=== PATIENT | male | born 1965 | race Caucasian/White ===

== ENCOUNTER 2018-11-06 13:00 | Observation (INO) | payer MEDICAID ==
[2018-11-06] MEDS ORDERED: LISINOPRIL 20 MG TABLET PO ONE (13:28)
--- NOTE | 2018-11-06 13:33 | Emergency Department Record ---
History of Present Illness - General Chief Complaint: Hypertension Stated Complaint: high blood pressure Time Seen by Provider: 11/06/18 13:16 Source: Patient Mode of Arrival: Ambulatory Limitations: No limitations - History of Present Illness Initial Comments: The patient is here due to being told his blood pressure is elevated. He states he has had a long standing hx of HTN and used to take Lisinopril but ran out a couple of months ago. He states it has been running in the 200'2 on the top number and he did go to [facility] last week and was told he needs to see a PCP. According to the doctor at [facility] [place] had an abnormal EKG and was directed to the ER but the patient refused to go. Today he decided to come in to get it checked. He denies any BRICE, CP, SOB, DAYSI, visual changes, or any weakness or numbness to his arms or legs. MD Complaint: Other Onset/Timin -: Year(s) Timing: Unsure History of Same: Yes History of Trauma: Yes Severity: Mild Improves With: Rest Worsens With: Nothing - Nicci Coma Scale Eye Response: (4) Open spontaneously Motor Response: (6) Obeys commands Verbal Response: (5) Oriented Bentley Total: 15 - Related Data Home Medications Medication Instructions Recorded Confirmed Last Taken Lisinopril [Zestril] 20 mg PO DAILY 11/06/18 11/06/18 10/31/18 Allergies Allergy/AdvReac Type Severity Reaction Status Date / Time No Known Drug Allergies Allergy Verified 11/06/18 13:07 Travel Screening - Travel/Exposure Within Last 30 Days Have you traveled within the last 30 days?: No - Travel/Exposure Within Last Year Have you traveled outside the [place] in the last year?: No - Additonal Travel Details Have you been exposed to anyone with a communicable illness?: No - Travel Symptoms Symptom Screening: None Review of Systems Constitutional: Denies: Chills, Fever Eyes: Denies: Eye discharge ENT: Denies: Congestion Respiratory: Denies: Cough, Dyspnea Cardiovascular: Denies: Chest pain, Dyspnea on exertion Endocrine: Denies: Fatigue Gastrointestinal: Denies: Nausea Genitourinary: Denies: Dysuria Musculoskeletal: Denies: Arthralgia Skin: Denies: Bruising Past Medical History - SOCIAL HISTORY Smoking Status: Current some day smoker Alcohol Use: Occasional Drug Use: Occasional Drug Use Detail:: Marijuana - RESPIRATORY Hx Respiratory Disorders: No - CARDIOVASCULAR Hx Cardio Disorders: Yes Hx Hypertension: Yes - NEURO Hx Neuro Disorders: No - GI Hx GI Disorders: No - Hx Genitourinary Disorders: No - ENDOCRINE Hx Endocrine Disorders: No - MUSCULOSKELETAL Hx Musculoskeletal Disorders: No - PSYCH Hx Psych Problems: No - HEMATOLOGY/ONCOLOGY Hx Hematology/Oncology Disorders: No Family Medical History Any Significant Family History?: Yes Hx Cancer: Mother Physical Exam - General General Appearance: Alert, Oriented x3, Cooperative, No acute distress - Head Head exam: Atraumatic, Normocephalic, Normal inspection - Eye Eye exam: Normal appearance, PERRL, EOMI - ENT Throat exam: Normal inspection. negative: Tonsillar erythema, Tonsillar exudate - Neck Neck exam: Normal inspection, Full ROM. negative: Tenderness - Respiratory Respiratory exam: Normal lung sounds bilaterally. negative: Respiratory distress - Cardiovascular Cardiovascular Exam: Regular rate, Normal rhythm, Normal heart sounds. negative : Diastolic murmur, Systolic murmur - GI/Abdominal GI/Abdominal exam: Soft, Normal bowel sounds. negative: Tenderness - Extremities Extremities exam: Normal inspection, Full ROM, Normal capillary refill. negative: Tenderness - Neurological Neurological exam: Alert, Normal gait, Other (Neg Drift and Rhomberg.). negative: Abnormal gait, Motor sensory deficit Course Vital Signs 11/06/18 13:12 Temperature 98.2 F Pulse Rate 70 Respiratory 20 Rate Blood Pressure 217/120 Pulse Ox 99 - Reevaluation(s) Reevaluation #1: The patient is doing well and denies any new problems or any pain. I did have a conversation with the patient and mother regarding an episode the patient had 5 months ago when he developed R sided numbness. The symptoms lasted weeks and slowly returned. The patient did not seek care for it. Because of that I did order a head CT which did demonstrate an old L sided CVA. 11/06/18 14:51 Reevaluation #2: The patient is doing very well at this time. Due to his persistently elevated BP I did decide to admit him to the hospital for further testing and monitoring and the patient does agree. I did discuss the case with Caridad (KIM) and she does accept the patient for Dr. Lopez. 11/06/18 16:21 Medical Decision Making - Data Complexity MDM Data: Labs Ordered and/or Reviewed, X-Ray Ordered and/or Reviewed, EKG Ordered and/or Reviewed - Lab Data Result diagrams: 11/06/18 13:35 11/06/18 13:35 - EKG Data -: EKG Interpreted by Me EKG: No Acute Changes (LVH.) - Radiology Data Radiology results: Report reviewed (Head CT: Old L sided infarcts.) Disposition Disposition: Admit Clinical Impression: Accelerated hypertension Disposition: Still a Patient at [facility] Decision to Admit: Admit from ER Decision to Admit Date: 11/06/18 Decision to Admit Time: 16:23 Accepting Physician: Jessica Time Discussed w/Accepting Physician: 16:24 Condition: (2) Stable Forms: Patient Portal Access Time of Disposition: 16:24 Quality - Quality Measures Quality Measures: N/A - Blood Pressure Screening View Details: Yes Does Patient Have Any of the Following: Active Dx of HTN Blood Pressure Classification: Hypertensive Reading Systolic Measurement: 217 Diastolic Measurement: 120 Screening for High Blood Pressure: Patient Exclusion, Hx of HTN [[id number]]
[2018-11-06 13:42] LABS: BASO % 1.5 % (0-6); EOS % 1.4 % (0-6); GRAN % 75.8 % (47-80); HEMATOCRIT 51.7 % (42.0-52.0); HEMOGLOBIN 17.8 gm/dl (14.0-18.0); LYMPH % 14.8 % (16-45); MEAN CELL VOLUME 89.3 fl (81-97); MEAN CORPUSCULAR HEMOGLOBIN 30.7 pg (27-33); MEAN CORPUSCULAR HGB CONC 34.4 g/dl (32-36); MONO % 6.5 % (0-9); PLATELET COUNT 166 K/uL (130-400); RED BLOOD COUNT 5.79 M/uL (4.40-5.70); WHITE BLOOD COUNT W/O DIFF 9.5 K/uL (4.2-12.2)
[2018-11-06 14:00] LABS: BLOOD UREA NITROGEN 9 mg/dL (6-20); CREATININE 0.9 mg/dL (0.7-1.2); EST GLOMERULAR FILTRATION RATE > 60 mL/min
[2018-11-06 14:01] LABS: TOTAL PROTEIN 6.9 g/dL (6.6-8.7)
[2018-11-06 14:03] LABS: GLUCOSE,RANDOM 126 mg/dL (74-109)
[2018-11-06 14:05] LABS: ALT/SGPT 16 U/L (<41)
[2018-11-06 14:06] LABS: ALB/GLOB RATIO 1.9 (1.1-1.8); ALBUMIN 4.5 g/dL (4.0-5.0); ALKALINE PHOSPHATASE 89 U/L (40-129); AST/SGOT 17 U/L (10.0-50.0)
[2018-11-06] MEDS: AMLODIPINE BESYLATE 5MG TAB PO SCH (15:10)
[2018-11-06] MEDS ORDERED: ACETAMINOPHEN 325 MG TAB PO PRN (18:00)
[2018-11-06] MEDS: CLONIDINE HCL 0.1 MG TABLET PO PRN (19:07)
--- NOTE | 2018-11-07 07:32 | CT SCAN REPORT ---
EXAM: CT OF THE BRAIN WITHOUT CONTRAST HISTORY: HYPERTENSION. TECHNIQUE: Sequential axial images were obtained from the foramen magnum to the vertex without contrast administration. FINDINGS: There are age indeterminate areas of decreased attenuation in the left periventricular white matter and lentiform nucleus. No mass effect or midline shift. No sulcal effacement. No extraaxial fluid collection. The orbits, paranasal sinuses and mastoid air cells are normal. IMPRESSION: AGE INDETERMINATE AREAS OF INFARCTION IN THE LEFT PERIVENTRICULAR WHITE MATTER AND LENTIFORM NUCLEUS. NO MASS EFFECT OR MIDLINE SHIFT. JOB NUMBER: [id number] MTDD
--- NOTE | 2018-11-07 07:36 | ULTRASOUND REPORT ---
EXAM: COMPLETE RETROPERITONEAL ULTRASOUND HISTORY: HIGH BLOOD PRESSURE. TECHNIQUE: Sonographic evaluation of the kidneys and urinary bladder was performed in the standard fashion. Comparison: None. FINDINGS: The urinary bladder is only partially distended. No focal abnormalities are identified. Both kidneys are normal in size with the right measuring 11.3 x 4 x 5.4 cm and the left measuring 10.3 x 5.3 x 6.4 cm. There is no hydronephrosis or mass. There is a 4 mm nonobstructing stone within the left kidney. IMPRESSION: 1. 4 MM NONOBSTRUCTING STONE WITHIN THE LEFT KIDNEY. 2. OTHERWISE, UNREMARKABLE KIDNEYS AND URINARY BLADDER. JOB NUMBER: [id number] MTDD
--- NOTE | 2018-11-07 07:45 | US CAROTID DOPPLER REPORT ---
EXAM: BILATERAL CAROTID DOPPLER ULTRASOUND HISTORY: HYPERTENSION. PREVIOUS TIA. TECHNIQUE: Bilateral carotid Doppler examination was performed in the standard fashion. Agarwal scale, color Doppler and duplex Doppler imaging with waveform analysis was performed. Comparison: None. FINDINGS: Agarwal scale images demonstrate mild atherosclerotic plaque along the posterior wall of the right carotid bulb. There is very slight plaque as well within the left carotid bulb. There is only very minor stenosis within the right carotid bulb estimated at approximately 10% of the vessel diameter. There is no stenosis on the left. The vertebral arteries appear normal. Velocities: 3 Vessel Right Peak Systolic/ End Diastolic Velocities Left Peak Systolic/ End Diastolic Velocities Proximal Common Carotid Artery 85.6 cm/s /20/8 cm/s 80.2 cm/s /14.1 cm/s Mid Common Carotid Artery 74.6 cm/s /20.8 cm/s 73.7 cm/s /16.7 cm/s Distal Common Carotid Artery 82.3 cm/s /20.8 cm/s 59.4 cm/s /8.9 cm/s Proximal Internal Carotid Artery 59.4 cm/s /12.8 cm/s 45.3 cm/s /13.0 cm/s Mid Internal Carotid Artery 62.0 cm/s /15.4 cm/s 59.3 cm/s /20.0 cm/s Distal Internal Carotid Artery 60.7 cm/s /19.3 cm/s 51.4 cm/s /16.5 cm/s Carotid Bulb 69.1 cm/s /12.0 cm/s 54.9 cm/s /10.4 cm/s Proximal External Carotid Artery 108.0 cm/s /14.4 cm/s 102.2 cm/s /18.0 cm/s d d d Right Flow Left Flow Vertebral Artery PSV 27.0 cm/s, Antegrade 29.6 cm/s, Antegrade The ICA/CCA ratio on the right is 0.8 and on the left is 0.8. IMPRESSION: 1. VERY MINOR ATHEROSCLEROTIC PLAQUE WITHIN THE CAROTID BULBS BILATERALLY, RIGHT GREATER THAN LEFT WITH ONLY APPROXIMATELY 10% DIAMETER STENOSIS ON THE RIGHT AND NO STENOSIS ON THE LEFT. 2. OTHERWISE, UNREMARKABLE BILATERAL CAROTID DOPPLER EXAMINATION. JOB NUMBER: [id number] MTDD
[2018-11-07] MEDS: CLONIDINE HCL 0.1 MG TABLET PO PRN (08:38)
[2018-11-07] MEDS ORDERED: LISINOPRIL 10 MG TABLET PO SCH (10:00)
[2018-11-07] MEDS: AMLODIPINE BESYLATE 5MG TAB PO SCH (10:17)
[2018-11-07] MEDS ORDERED: AMLODIPINE BESYLATE 5MG TAB PO SCH (12:00)
--- NOTE | 2018-11-07 12:32 | History & Physical ---
History of Present Illness - Date of Service Date of Service for History & Physical: 11/07/18 - History of Present Illness Admitting Diagnosis: 1. Hypertensive crisis History of Present Illness: 52 yo male presents for hypertensive crisis, uncontrolled BPs (200s/120s) snf with heavy smoking history. PMH HTN (lisinopril 20mg QD), heavy smoker, some ETOH use. 11/06/18 Pt presented to [facility] ER for extreme hypertension, taking Lisinopril 20mg QD with no resolve. Recently moved from [place] [place] to [place] and living with his brother. Denied CP, BRICE, SOB, DAYSI, weakness, or visual changes. Was seen Jose GOMES and sal to get PCP but was given EKG and told to come to ER for evaluation. Additionally, pt reported right sided numbness/decreased strength that took several weeks to resolve. BP 217/120, 217/125, 212/133 98.2, HR 70, RR 20, 99% RA WBC 9.5, Hgb 17.8, Hct 51.7, Plt 166 Na 143, K 3.9, Cl 104, CO2 27, Anion Gap 12, BUN 9, Cr 0.9, GFR >60, glucose 126 , LFTs wnl EKG no acute issues but LVH noted Head CT shows old left sided CVA Renal US normal, 4mm stone Carotid US 10% stenosis (very mild) Given Norvasc 5mg and lisinopril 20mg ER Admit for hypertensive crisis (asymptomatic) 11/07/18 Pt in no distress, denies CP, BRICE, or vision issues. Moving all extremities with no difficulties. Speech is clear, no neuro abnormalities, quick NIH negative. Heart RRR, lungs CTA, no edema, pulses +3 DP and PT. Pt has general redness to face, neck and arms. Reports claudication pain with prolonged walking and activity, has not been followed for this before. Pt to est with PCP and have outpt Art doppler US. Given clonidine 0.1mg BID PRN for SBP >180, given with some improvement but still remaining elevated BP. Increased Norvasc to 10mg total today and will continue lisinopril. ECHO report LVH but no other issues per Cardiology PA. Card consult completed, pt to see PCP and card outpt. Have stress test outpt and continue to have BP managed. PCP none Travel Screening - Travel/Exposure Within Last 30 Days Have you traveled within the last 30 days?: No - Travel/Exposure Within Last Year Have you traveled outside the [place] in the last year?: No - Additonal Travel Details Have you been exposed to anyone with a communicable illness?: No - Travel Symptoms Symptom Screening: None Review of Systems Constitutional: Denies: Chills, Fever Eyes: Denies: Eye discharge ENT: Denies: Congestion Respiratory: Denies: Cough, Dyspnea Cardiovascular: Denies: Chest pain, Dyspnea on exertion Endocrine: Denies: Fatigue Gastrointestinal: Denies: Nausea Genitourinary: Denies: Dysuria Musculoskeletal: Denies: Arthralgia Skin: Denies: Bruising Past Medical History - SOCIAL HISTORY Smoking Status: Heavy tobacco smoker (>10/day) Alcohol Use: Occasional Alcohol Use Comment: beer Drug Use Detail:: Marijuana - RESPIRATORY Hx Respiratory Disorders: No - CARDIOVASCULAR Hx Cardio Disorders: Yes Hx Cardiac Cath: Yes (ablation) Hx Hypertension: Yes - NEURO Hx Neuro Disorders: No Hx CVA: Yes - GI Hx GI Disorders: No - Hx Genitourinary Disorders: No - ENDOCRINE Hx Endocrine Disorders: No Hx Diabetes: No Hx Thyroid Disease: No - MUSCULOSKELETAL Hx Musculoskeletal Disorders: No - PSYCH Hx Psych Problems: No - HEMATOLOGY/ONCOLOGY Hx Hematology/Oncology Disorders: No Family Medical History Any Significant Family History?: Yes Hx Cancer: Mother, Grandparents H&P Meds/Allergies - Allergies Allergies: Allergies Allergy/AdvReac Type Severity Reaction Status Date / Time No Known Drug Allergies Allergy Verified 11/06/18 13:07 - Home Medications Home Medications Medication Instructions Recorded Confirmed Last Taken Lisinopril [Zestril] 20 mg PO DAILY 11/06/18 11/06/18 10/31/18 - Active Medications Active Medications: Current Medications Acetaminophen (Tylenol 325mg) 650 mg PO Q6H PRN PRN Reason: PAIN - MILD(1-4)/FEVER Amlodipine Besylate (Norvasc) 10 mg PO DAILY ALENA Amlodipine Besylate (Norvasc) 5 mg PO ONCE ALENA Clonidine HCl (Catapres) 0.1 mg PO BID PRN PRN Reason: BLOOD PRESSURE Last Admin: 11/07/18 08:38 Dose: 0.1 mg Lisinopril (Zestril) 20 mg PO DAILY ALENA Last Admin: 11/07/18 10:17 Dose: 20 mg Physical Exam - Vital Signs Vital Signs: Vital Signs - Last 24 Hrs Temp Pulse Pulse Resp BP BP BP 11/07/18 10:10 168/112 11/07/18 08:40 98.6 F 63 18 197/123 11/07/18 08:25 97.8 F 70 14 191/124 11/07/18 08:17 52 L 18 11/07/18 04:00 52 L 18 156/92 11/06/18 23:57 78 18 169/101 11/06/18 21:00 72 16 11/06/18 20:58 181/102 11/06/18 20:00 98.3 F 76 20 209/109 11/06/18 18:48 60 18 11/06/18 18:00 98.4 F 60 18 214/128 11/06/18 15:49 60 18 204/120 11/06/18 15:31 60 18 205/129 11/06/18 14:43 212/133 11/06/18 14:39 73 20 217/125 11/06/18 14:37 73 20 127/125 11/06/18 13:12 98.2 F 70 20 217/120 Pulse Ox 11/07/18 10:10 11/07/18 08:40 98 11/07/18 08:25 96 11/07/18 08:17 11/07/18 04:00 97 11/06/18 23:57 98 11/06/18 21:00 11/06/18 20:58 11/06/18 20:00 98 11/06/18 18:48 11/06/18 18:00 99 11/06/18 15:49 99 11/06/18 15:31 99 11/06/18 14:43 11/06/18 14:39 99 11/06/18 14:37 99 11/06/18 13:12 99 - General General Appearance: Alert, Oriented x3, Cooperative, No acute distress Limitations: No limitations - Head Head exam: Atraumatic, Normocephalic, Normal inspection - Eye Eye exam: Normal appearance, PERRL, EOMI - ENT ENT exam: Normal exam, Mucous membranes moist Mouth exam: Normal external inspection, Tongue normal Teeth exam: Dental caries Throat exam: Normal inspection. negative: Tonsillar erythema, Tonsillar exudate - Neck Neck exam: Normal inspection, Full ROM. negative: Tenderness - Respiratory Respiratory exam: Normal lung sounds bilaterally. negative: Respiratory distress - Cardiovascular Cardiovascular Exam: Regular rate, Normal rhythm, Normal heart sounds. negative : Diastolic murmur, Systolic murmur Peripheral Pulses: 3+: Radial (R), Radial (L), Dorsalis Pedis (R), Dorsalis Pedis (L) - GI/Abdominal GI/Abdominal exam: Soft, Normal bowel sounds. negative: Tenderness - Rectal Rectal exam: Deferred - exam: Deferred - Extremities Extremities exam: Normal inspection, Full ROM, Normal capillary refill. negative: Tenderness - Back Back exam: Reports: Normal inspection, Full ROM. Denies: CVA tenderness (R), CVA tenderness (L) - Neurological Neurological exam: Alert, CN II-XII intact, Normal gait, Oriented X3, Other ( Neg Drift and Rhomberg.). negative: Abnormal gait, Motor sensory deficit - Psychiatric Psychiatric exam: Normal affect, Normal mood - Skin Skin exam: Dry, Intact, Normal color, Warm Results - Labs Result Diagrams: 11/06/18 13:35 11/06/18 13:35 Labs Last 24 Hours: Laboratory Results - last 24 hr 11/06/18 11/06/18 13:35 13:35 WBC 9.5 RBC 5.79 H Hgb 17.8 Hct 51.7 MCV 89.3 MCH 30.7 MCHC 34.4 RDW 13.0 Plt Count 166 MPV 11.0 H Gran % 75.8 Lymphocytes % 14.8 L Monocytes % 6.5 Eosinophils % 1.4 Basophils % 1.5 Sodium 143 Potassium 3.9 Chloride 104 Carbon Dioxide 27.0 Anion Gap 12.0 BUN 9 Creatinine 0.9 Estimated GFR > 60 Random Glucose 126 H Calcium 9.5 Total Bilirubin 0.70 AST 17 ALT 16 Alkaline Phosphatase 89 Total Protein 6.9 Albumin 4.5 Globulin 2.4 Albumin/Globulin Ratio 1.9 H - Imaging and Cardiology CT scan - head Status: Report reviewed US - abdomen Status: Report reviewed Additional Comments: renal US (normal, 4mm stone) and carotid US reviewed(10% stenosis) VTE H&P Assessment - Risk for VTE Risk for VTE: Yes Risk Level: High Risk Assessment Date: 11/07/18 Risk Assessment Time: 12:31 VTE Orders Placed or Will Be Placed: Yes Plan - Detailed Diagnosis and Plan (1) Hypertensive crisis Current Visit: Yes Status: Acute Base Code: I16.9 - HYPERTENSIVE CRISIS, UNSPECIFIED Comment: 11/07/18 -norvasc 5mg started in ER, increased to 10 mg today -continued lisinoprol 20mg QD (previous med, pt reported little change in BP with use) -Renal US normal, 4mm nonobstructing stone -clonidine 0.1mg BID PRN for SBP>180 -POC smoking cessation, DASH diet, and HTN med mgt with PCP (pt joining [facility] next week) (2) CVA, old, alterations of sensations Current Visit: Yes Status: Acute Base Code: I69.398 - OTHER SEQUELAE OF CEREBRAL INFARCTION; R20.9 - UNSPECIFIED DISTURBANCES OF SKIN SENSATION Comment: 11/07/18 -Ct head 11/06/18 shows infacrtion left periventricular and lentiform nucleus, no mass or shift -pt reports right sided paresthesia approx 06/2018 with slow resolution over several weeks but did not get evaluated or treated at that time. reports increased smoking, stress, and BP at the time of event -denies current isses (3) DVT prophylaxis Current Visit: Yes Status: Acute Base Code: [id number] - Comment: 11/07/18 -lovenox 40mg SQ QD (4) Full code status Current Visit: Yes Status: Acute Base Code: Z78.9 - OTHER SPECIFIED HEALTH STATUS Comment: 11/07/18 -full code
--- NOTE | 2018-11-07 14:48 | Discharge Summary ---
Providers Discharge Summary Date: 11/07/18 Date of admission: 11/06/18 17:59 Expected Date of Discharge: 11/07/18 Attending physician: JESSICA CANO Consults: Consult Orders 11/07/18 08:00 Consult - Cardiology ONCE Consulting Provider: MARISOL ORO Physician Instructions: Reason For Exam: hypertension Does pt have current piping design specialist?: Not Established Physical Exam - Vital Signs Vital Signs: Vital Signs - Last 24 Hrs Temp Pulse Resp BP BP Pulse Ox 11/07/18 14:00 98.1 F 67 18 181/106 98 11/07/18 10:10 168/112 11/07/18 08:40 98.6 F 63 18 197/123 98 11/07/18 08:25 97.8 F 70 14 191/124 96 11/07/18 08:17 52 L 18 11/07/18 04:00 52 L 18 156/92 97 11/06/18 23:57 78 18 169/101 98 11/06/18 21:00 72 16 11/06/18 20:58 181/102 11/06/18 20:00 98.3 F 76 20 209/109 98 11/06/18 18:48 60 18 11/06/18 18:00 98.4 F 60 18 214/128 99 11/06/18 15:49 60 18 204/120 99 11/06/18 15:31 60 18 205/129 99 - General General Appearance: Alert, Oriented x3, Cooperative, No acute distress Limitations: No limitations - Head Head exam: Atraumatic, Normocephalic, Normal inspection - Eye Eye exam: Normal appearance, PERRL, EOMI - ENT ENT exam: Normal exam, Mucous membranes moist Mouth exam: Normal external inspection, Tongue normal Teeth exam: Dental caries Throat exam: Normal inspection. negative: Tonsillar erythema, Tonsillar exudate - Neck Neck exam: Normal inspection, Full ROM. negative: Tenderness - Respiratory Respiratory exam: Normal lung sounds bilaterally. negative: Respiratory distress - Cardiovascular Cardiovascular Exam: Regular rate, Normal rhythm, Normal heart sounds. negative : Diastolic murmur, Systolic murmur Peripheral Pulses: 3+: Radial (R), Radial (L), Dorsalis Pedis (R), Dorsalis Pedis (L) - GI/Abdominal GI/Abdominal exam: Soft, Normal bowel sounds. negative: Tenderness - Rectal Rectal exam: Deferred - exam: Deferred - Extremities Extremities exam: Normal inspection, Full ROM, Normal capillary refill. negative: Tenderness - Back Back exam: Reports: Normal inspection, Full ROM. Denies: CVA tenderness (R), CVA tenderness (L) - Neurological Neurological exam: Alert, CN II-XII intact, Normal gait, Oriented X3, Other ( Neg Drift and [place]om[place].). negative: Abnormal gait, Motor sensory deficit - Psychiatric Psychiatric exam: Normal affect, Normal mood - Skin Skin exam: Dry, Intact, Normal color, Warm Hospitalization - Hospitalization Admission Diagnosis: 1. Hypertensive crisis - Problem List/Discharge Diagnosis (1) Hypertensive crisis Current Visit: Yes Status: Acute Base Code: I16.9 - HYPERTENSIVE CRISIS, UNSPECIFIED Comment: 11/07/18 -norvasc 5mg started in ER, increased to 10 mg today -continued lisinoprol 20mg QD (previous med, pt reported little change in BP with use) -Renal US normal, 4mm nonobstructing stone -clonidine 0.1mg BID PRN for SBP>180 -POC smoking cessation, DASH diet, and HTN med mgt with PCP (pt joining [facility] next week) (2) CVA, old, alterations of sensations Current Visit: Yes Status: Acute Base Code: I69.398 - OTHER SEQUELAE OF CEREBRAL INFARCTION; R20.9 - UNSPECIFIED DISTURBANCES OF SKIN SENSATION Comment: 11/07/18 -Ct head 11/06/18 shows infacrtion left periventricular and lentiform nucleus, no mass or shift -pt reports right sided paresthesia approx 06/2018 with slow resolution over several weeks but did not get evaluated or treated at that time. reports increased smoking, stress, and BP at the time of event -denies current isses (3) DVT prophylaxis Current Visit: Yes Status: Acute Base Code: [id number] - Comment: 11/07/18 -lovenox 40mg SQ QD (4) Full code status Current Visit: Yes Status: Acute Base Code: Z78.9 - OTHER SPECIFIED HEALTH STATUS Comment: 11/07/18 -full code - Hospitalization Course Procedures: Imaging and X-Rays 11/06/18 13:51 HEAD WO CONTRAST [CT] Stat 11/06/18 16:16 ARTERIAL DOPPLER CAROTID GANESH [US] Stat 11/06/18 16:17 RENAL [US] Stat Cardiology Procedures 11/06/18 13:28 EKG NOW 11/06/18 18:00 EKG QDX2@0600 11/07/18 11:49 Echo W/CF & Cardiac Doppler NOW Abnormal Labs: Abnormal Lab Results 11/06/18 11/06/18 Range/Units 13:35 13:35 RBC 5.79 H (4.40-5.70) M/uL MPV 11.0 H (7.4-10.4) fl Lymphocytes % 14.8 L (16-45) % Random Glucose 126 H (74-109) mg/dL Albumin/Globulin Ratio 1.9 H (1.1-1.8) Condition at Discharge: (2) Stable Discharge Medications - Discharge Medications Prescriptions: Amlodipine Besylate [Norvasc] 10 mg PO DAILY 14 Days #14 tab Chlorthalidone 25 mg PO DAILY 14 Days #14 tablet Home Medications: Ambulatory Orders Lisinopril [Zestril] 20 mg PO DAILY 11/06/18 [Last Taken 10/31/18] Acetaminophen [Tylenol 325Mg] 650 mg PO Q6H PRN tablet 11/07/18 [Last Taken Unknown] Amlodipine Besylate [Norvasc] 10 mg PO DAILY 14 Days #14 tab 11/07/18 [Last Taken Unknown] Chlorthalidone 25 mg PO DAILY 14 Days #14 tablet 11/07/18 [Last Taken Unknown] Discharge Plan - Discharge Instructions Activity at Discharge: Increase Activity as Tolerated Diet at Discharge: Low Salt Diet Additional Instructions: You have an appointment with Dr. Angie Rico at the [facility] on November 15 at 9:00am. Address: [address] [place] [address] (third floor, [employer] on the door) Office Please arrive 15 minutes before your appointment to complete new patient paperwork. Bring your ID, insurance card and list of current medications. Cardiology follow up will be either with [facility] (Case Management will notify you if this will be your specialist.), or you will need to have Dr. Rico refer you to a piping design specialist after your appointment with him next Sunday. Your are to take Lisinopril 20mg, and chlorthalidone 25mg daily in the AM and Norvasc 10mg at night. Goal blood pressure is 130-140/80s Quality Measures - Quality Measures Quality Measures: Documentation of Current Medications in Medical Record, Screening for High Blood Pressure and F/U Documented - Current Medications Quality Measure: Measure #130: Documentation of Current Medications Documentation of Current Medications: <Current Medications Documented/Reviewed> [G8427] - Blood Pressure Screening Quality Measure: Screening for High Blood Pressure and Follow-Up Documented Does Patient Have Any of the Following: Active Dx of HTN Blood Pressure Classification: Hypertensive Reading Systolic Measurement: 217 Diastolic Measurement: 120 Screening for High Blood Pressure: Patient Exclusion, Hx of HTN [G9744] - Elder Abuse Suspicion Index EASI Reference Information: Noe BECKER, Jemima C, Therese D, Dangelo Hudson.Development and validation of a tool to assist physicians identification of elder abuse: The Elder Abuse Suspicion Index (EASI ). Journal of Elder Abuse and Neglect, 2008; 20 (3): 276-300.
[2018-11-07] MEDS ORDERED: CHLORTHALIDONE 25 MG TABLET PO SCH (15:15)
[2018-11-08] MEDS ORDERED: ENOXAPARIN 40 MG/0.4 ML SYR SQ SCH (10:00)
[2018-11-08] MEDS ORDERED: AMLODIPINE BESYLATE 5MG TAB PO SCH (10:00)
== END 2018-11-07 15:51 | disposition home or self-care (01) ==
LOC: ER 13:00 → MEDSURG 17:59
PROVIDERS: ADMIT Internal Medicine; ATTEND Internal Medicine
DX: I16.9 Hypertensive crisis, unspecified (principal); I69.398 Other sequelae of cerebral infarction; R20.9 Unspecified disturbances of skin sensation; F17.210 Nicotine dependence, cigarettes, uncomplicated; F12.90 Cannabis use, unspecified, uncomplicated; Z98.61 Coronary angioplasty status
CPT/HCPCS: 99285 ×2; 85025; 80053; 93880; 76775; 70450; 93005 ×2; 93010; 93306; G0378 ×2; J3490; 99220